=== PATIENT | female | born 1960 | race African-American/Black ===

== ENCOUNTER 2024-07-31 17:16 | Emergency (ER) | payer MEDICARE, MEDICAID ==
[~2024-07-31] VITALS: Ht 160 cm; Wt 54.5 kg
[~2024-07-31 17:16] MED LIST: HYDR-4398 PO; [UNRECOGNIZED DRUG - REMARK]
[2024-07-31 19:26] VITALS: TEMP 97.7
[2024-07-31] MEDS: ACETAMINOPHEN 325 MG TABLET PO ONE (20:23)
[2024-07-31] MEDS: LIDOCAINE 5% TRANSDERMAL PATCH TD ONE (20:24)
[2024-07-31 21:25] VITALS: BP 124/80; PULSE 73; RESP 18; O2SAT 98
== END 2024-07-31 21:18 | disposition home or self-care (01) ==
LOC: EMS 17:18
DX: M25.562 Pain in left knee (principal); E11.9 Type 2 diabetes mellitus without complications; Z88.1 Allergy status to other antibiotic agents; Z88.8 Allergy status to other drugs, medicaments and biological substances
CPT/HCPCS: 82962; 99283

== ENCOUNTER 2024-08-21 13:07 | Inpatient (IN) | payer MEDICARE, MEDICAID ==
[~2024-08-21] VITALS: Ht 162.6 cm; Wt 81.4 kg
[2024-08-21 13:49] VITALS: O2SAT 97
[2024-08-21] MEDS: ACETAMINOPHEN 325 MG TABLET PO ONE (14:29)
[2024-08-21] MEDS ORDERED: MAGNESIUM HYDROXIDE SUSPENSION 30 ML UDCUP PO PRN (15:15)
[2024-08-21] MEDS ORDERED: LOPERAMIDE HCL 2 MG CAPSULE PO PRN (15:15)
[2024-08-21] MEDS ORDERED: MAG HYDROX/ALUMINUM HYD/SIMETH ES 30 ML SUSPENSION UDCUP PO PRN (15:15)
[2024-08-21 16:01] LABS: BASOPHILS % (AUTO) 0.3 % (0.0-2.0); EOSINOPHILS % (AUTO) 3.3 % (1.0-6.0); HEMATOCRIT 37.7 % (36-46); HEMOGLOBIN 12.6 g/dL (12.0-16.0); LYMPHOCYTES # (AUTO) 1.9 K/uL (1.0-4.8); LYMPHOCYTES % (AUTO) 32.7 % (22.0-44.0); MEAN CORPUSCULAR HEMOGLOBIN 32.4 pg (26.0-34.0); MEAN CORPUSCULAR HGB CONC 33.5 G/dL (31.0-37.0); MEAN CORPUSCULAR VOLUME 97 fL (80-100); MONOCYTES # (AUTO) 0.5 K/uL (0.1-1.0); MONOCYTES % (AUTO) 7.9 % (2.0-9.0); NEUTROPHILS # (AUTO) 3.2 K/uL (1.8-7.7); NEUTROPHILS % (AUTO) 55.8 % (40.0-70.0); PLATELET COUNT (AUTO) 273 K/uL (150-450); RED CELL DISTRIBUTION WIDTH 13.5 % (11.5-14.5); WHITE BLOOD COUNT (AUTO) 5.7 K/uL (4.5-11.0)
[2024-08-21 16:13] LABS: ANION GAP 8 mmol/L (8-16); CALCIUM, TOTAL 8.7 mg/dL (8.8-10.5); CARBON DIOXIDE 28 mmol/L (22-29); CHLORIDE 105 mmol/L (98-107); GLOMERULAR FILTR. RATE CALC > 60 mL/min (>60); GLUCOSE,RANDOM 114 mg/dL (70-110); POTASSIUM 3.8 mmol/L (3.5-5.1); SODIUM SERUM 141 mmol/L (136-145); UREA NITROGEN, BLOOD 16 mg/dL (7-18)
[2024-08-21 16:20] LABS: COVID AG,FIA SOURCE NASAL SWAB
[2024-08-21 16:21] LABS: ALCOHOL, BLOOD (SERUM) < 3 mg/dL (0-10)
[2024-08-21] MEDS: ACETAMINOPHEN 325 MG TABLET PO PRN (16:25)
[2024-08-21 16:39] LABS: SARS-COV2 (COVID) ANTIGEN,FIA Negative (Negative)
[2024-08-21 18:03] LABS: APPEARANCE,URINE CLEAR (CLEAR); BILIRUBIN,URINE NEGATIVE (NEGATIVE); COLOR,URINE LIGHT YELLOW (YELLOW); GLUCOSE, URINE (UA) NEGATIVE (NEGATIVE); KETONES,URINE NEGATIVE (NEGATIVE); LEUKOCYTE ESTERASE ,URINE NEGATIVE (NEGATIVE); NITRATE,URINE NEGATIVE (NEGATIVE); OCCULT BLOOD,URINE NEGATIVE (NEGATIVE); PH,URINE 6.5 (5.0-8.0); PH,URINE DRUG SCREEN 6.5 (5.0-8.0); PROTEIN,URINE NEGATIVE (NEGATIVE); SPECIFIC GRAVITIY, URINE 1.023 (1.003-1.030); UROBILINOGEN,URINE <=1.0 mg/dL (<=1.0)
[2024-08-21 18:12] LABS: ALCOHOL, URINE DRUG SCREEN NEGATIVE (NEGATIVE); AMPHET/METH SCREEN,URINE NEGATIVE (NEGATIVE); BARBITURATE SCREEN, URINE NEGATIVE (NEGATIVE); BENZODIAZEPINES SCREEN,URINE NEGATIVE (NEGATIVE); CANNABINOID SCREEN,URINE NEGATIVE (NEGATIVE); COCAINE SCREEN,URINE NEGATIVE (NEGATIVE); METHADONE SCREEN, URINE NEGATIVE (NEGATIVE); OPIATE SCREEN,URINE NEGATIVE (NEGATIVE); PHENCYCLIDINE SCREEN,URINE NEGATIVE (NEGATIVE)
[2024-08-21 18:20] LABS: BACTERIA,URINE Few /HPF (None Seen); RBC,URINE 0-2 /HPF (0-2); SQUAMOUS EPITHELIAL CELL,UR Rare /LPF (None Seen); WBC,URINE 0-2 /HPF (0-5)
[2024-08-21 20:21] LABS: GLUCOMETER DEV NAME(LOC) ERT.6; GLUCOSE,POINT OF CARE 96 MG/DL (70-110)
[2024-08-21] MEDS: ZOLPIDEM TARTRATE 10 MG TABLET PO PRN (21:56)
[2024-08-21] MEDS: LORazepam 2 MG TABLET PO PRN (21:56)
[2024-08-21] MEDS: QUEtiapine FUMARATE 100 MG TABLET PO PRN (22:53)
[2024-08-21 23:55] VITALS: BP 134/83; PULSE 95; RESP 18; TEMP 98.2; O2SAT 98
[2024-08-22] MEDS ORDERED: GuaiFENesin/D-METHORPHAN [SUGAR-FREE] 200-20MG/10 ML SYRUP UDCUP PO PRN (06:45)
[2024-08-22] MEDS ORDERED: ALBUTEROL SULFATE HFA 90 MCG/PUFF 8 GM INHALER IH PRN (06:45)
[2024-08-22] MEDS ORDERED: IBUPROFEN 400 MG TABLET PO PRN (06:45)
[2024-08-22] MEDS ORDERED: MAGNESIUM HYDROXIDE SUSPENSION 30 ML UDCUP PO PRN (06:45)
[2024-08-22] MEDS ORDERED: CloNIDine HCL 0.1 MG TABLET PO PRN (06:45)
[2024-08-22] MEDS ORDERED: MAG HYDROX/ALUMINUM HYD/SIMETH ES 30 ML SUSPENSION UDCUP PO PRN (06:45)
[2024-08-22] MEDS ORDERED: ACETAMINOPHEN 325 MG TABLET PO PRN (06:45)
[2024-08-22] MEDS ORDERED: DOCUSATE SODIUM 100 MG CAPSULE PO PRN (06:45)
[2024-08-22] MEDS ORDERED: PETROLATUM,WHITE 28 GM JELLY TP PRN (06:45)
[2024-08-22] MEDS ORDERED: ONDANSETRON 4 MG TABLET PO PRN (06:45)
[2024-08-22] MEDS ORDERED: NICOTINE 14 MG/24 HOUR PATCH TD PRN (06:45)
[2024-08-22 09:03] VITALS: BP 162/88; PULSE 110; RESP 19; TEMP 97.6; O2SAT 96
[2024-08-22] MEDS ORDERED: HydrOXYzine HCL 50 MG TABLET PO PRN (10:15)
[2024-08-22] MEDS ORDERED: BUSP10TA23 PO (10:25)
[2024-08-22] MEDS ORDERED: OLAN15TA21 PO (10:25)
[2024-08-22] MEDS ORDERED: PALI234D IM (10:26)
[2024-08-22] MEDS ORDERED: HYDROX5L PO (10:26)
[2024-08-22] MEDS ORDERED: DIVA-112 PO (10:26)
[2024-08-22] MEDS: BusPIRone HCL 10 MG TABLET PO SCH (13:20)
[2024-08-22 20:30] VITALS: RESP 18; TEMP 97.7
[2024-08-22] MEDS: OLANZapine 10 MG TABLET PO SCH (21:52)
[2024-08-22] MEDS: DIVALPROEX SODIUM 500 MG DR TABLET PO SCH (21:52)
[2024-08-23 08:16] LABS: HEMOGLOBIN A1C 5.5 % (3.8-5.6)
[2024-08-23 08:46] VITALS: BP 118/65; PULSE 67; RESP 17; TEMP 98.1; O2SAT 98
[2024-08-23 09:13] LABS: CHOL/HDL RATIO 4.3 (3.9-5.7); THYROID STIMULATING HORMONE 1.93 uIU/mL (0.36-3.74)
[2024-08-23 20:05] VITALS: BP 123/72; PULSE 70; RESP 18; TEMP 97.4
[2024-08-24 09:15] VITALS: BP 113/72; PULSE 101; RESP 18; TEMP 97.4; O2SAT 98
[2024-08-24] MEDS: LOPERAMIDE HCL 2 MG CAPSULE PO PRN (13:58)
[2024-08-24 21:11] VITALS: BP 110/60; PULSE 75; RESP 16; TEMP 97.7; O2SAT 95
[2024-08-25 09:12] VITALS: BP 138/62; PULSE 83; RESP 18; TEMP 97.2; O2SAT 95
[2024-08-25 20:11] VITALS: BP 129/72; PULSE 81; RESP 18; TEMP 97.5
[2024-08-26 08:06] VITALS: BP 115/60; PULSE 98; RESP 17; TEMP 97.3; O2SAT 95
[2024-09-08] MEDS ORDERED: PALIPERIDONE PALMITATE 234 MG/1.5 ML SYRINGE IM SCH (09:00)
== END 2024-08-26 14:15 | DRG 885 ==
LOC: EMS 13:07 → 3EC 08-22 00:20
PROVIDERS: ADMIT Psychiatry & Neurology Psychiatry; ATTEND Psychiatry & Neurology Psychiatry
PROC: GZ56ZZZ Individual Psychotherapy, Supportive (ICD-10-PCS; principal; 2024-08-22)
PROC: GZHZZZZ Group Psychotherapy (ICD-10-PCS; 2024-08-22)
DX: F20.0 Paranoid schizophrenia (principal); A52.3 Neurosyphilis, unspecified; E11.9 Type 2 diabetes mellitus without complications; E66.9 Obesity, unspecified; I10 Essential (primary) hypertension; Z20.822 Contact with and (suspected) exposure to COVID-19; M25.562 Pain in left knee; K75.9 Inflammatory liver disease, unspecified; Z86.718 Personal history of other venous thrombosis and embolism; Z79.899 Other long term (current) drug therapy; Z68.30 Body mass index [BMI] 30.0-30.9, adult
CPT/HCPCS: 80048; 80061; 80307; 81001; 82962; 83036; 84443; 85025; 87081; 93970; 97162; 99285; G0480